=== PATIENT | male | born 1955 | race Caucasian/White ===

== ENCOUNTER 2017-05-04 12:14 | Inpatient (IN) | payer BC ==
[~2017-05-04] VITALS: Ht 167.6 cm; Wt 60.0 kg
[2017-05-04] VITALS (12 sets, daily range): BP systolic 95–106; BP diastolic 54–60; PULSE 68–78; RESP 15–18; Ht 167.6 cm; Wt 60.0 kg
[2017-05-04] MEDS ORDERED: IODIXANOL LOCM 100 ML BTL ONE (12:27)
[2017-05-04] MEDS ORDERED: LIDOCAINE 1% (MDV) 20 ML INJ ONE (12:27)
[2017-05-04] MEDS ORDERED: IOHEXOL 350MG/ML 50 ML BTL ONE (12:27)
[2017-05-04] MEDS ORDERED: NITROGLYCERIN (IC) 100 MCG/ML INJ ONE (12:27)
[2017-05-04] MEDS ORDERED: FENTAnyl 50 MCG/ML VIAL ONE (12:27)
[2017-05-04] MEDS ORDERED: MIDAZOLAM 1 MG/ML 2 ML INJ ONE (12:27)
[2017-05-04] MEDS ORDERED: HEPARIN 1000 UNITS/ML 10 ML INJ IV ONE (12:30)
[2017-05-04] MEDS ORDERED: SOD CHLORIDE 0.9% 1,000 ML IV ONE (12:30)
[2017-05-04] MEDS ORDERED: ASPIRIN 81 MG TAB PO ONE (12:30)
[2017-05-04 12:33] LABS: BASOPHIL # 0.1 10^3/ul (0.0-0.1); EOSINOPHILS # 0.2 10^3/ul (0.0-0.5); EOSINOPHILS % 3.6 % (0.0-7.0); HEMATOCRIT 30.3 % (42.0-52.0); HEMOGLOBIN 10.4 g/dl (14.0-18.0); LYMPHOCYTES # 1.7 10^3/ul (0.8-2.9); LYMPHOCYTES % 27.6 % (15.0-51.0); MEAN CORPUSCULAR HEMOGLOBIN 31.7 pg (29.0-33.0); MEAN CORPUSCULAR HGB CONC 34.3 g/dl (32.0-37.0); MEAN CORPUSCULAR VOLUME 92.4 fl (82.0-101.0); MEAN PLATELET VOLUME 10.2 fl (7.4-10.4); MONOCYTE # 0.6 10^3/ul (0.3-0.9); NEUTROPHIL # 3.5 10^3/ul (1.6-7.5); NEUTROPHILS % 57.5 % (39.0-77.0); PLATELET COUNT 175 10^3/UL (140-415); RED BLOOD COUNT 3.28 10^6/ul (4.70-6.10); RED CELL DISTRIBUTION WIDTH 12.6 % (11.5-14.5); WHITE BLOOD COUNT 6.1 10^3/ul (4.8-10.8)
[2017-05-04 12:45] LABS: ANION GAP 13 (8-16); BLOOD UREA NITROGEN 29 mg/dl (7-20); CALCIUM 9.1 mg/dl (8.4-10.2); CARBON DIOXIDE 22 mmol/L (21-31); CHLORIDE 103 mmol/L (97-110); CREATININE 1.05 mg/dl (0.61-1.24); GLUCOSE 101 mg/dl (70-220); POTASSIUM 3.9 mmol/L (3.5-5.1); SODIUM 134 mmol/L (135-144)
--- NOTE | 2017-05-04 12:49 | RADRPT ---
PROCEDURE: XR Chest. CLINICAL INDICATION: Chest pain TECHNIQUE: Single portable view of the chest was obtained COMPARISON: No priors for comparison FINDINGS: The trachea is midline. The cardiac silhouette and pulmonary vascularity are within normal limits. T he lungs are clear. The costophrenic angles are sharp. IMPRESSION: 1. No evidence of acute cardiopulmonary disease. RPTAT: AAPP Physician Chhaya Date Time Electronically viewed and signed by Physician Chhaya on 05/04/2017 12:49 CHAITANYA/
--- NOTE | 2017-05-04 12:51 | RADRPT ---
PROCEDURE: CT Brain without contrast. CLINICAL INDICATION: Neurologic deficit TECHNIQUE: A CT of the brain was performed on multidetector high-resolution CT scanner utilizing a xial sections from the skull base through the vertex without contrast. One or more of the following dose reduction techniques were used: Automated exposure control, Adjustment of the mA and/or kV acc ording to patient size, and/or use of iterative reconstruction technique. DOSE: CTDI = 44 mGy and the DLP = 720 mGy-cm. COMPARISON: None available FINDINGS: No acute intracranial hemorrhage, significant mass effect or midline shift. Mild hypoattenuation of the cerebral white matter is compatible with chronic microvascular ischemic changes. Chronic right l entiform nucleus lacunar infarct. Vascular calcifications. Prominence of the cortical sulci and vent ricles are related to mild cerebral volume loss. Opacified right mastoid, right middle ear cavity and bilateral external auditory canals IMPRESSION: No acute intracranial hemorrhage or mass effect. Mild chronic microvascular disease and intracranial atherosclerosis. Chronic right lentiform nucleus lacunar infarct. Opacified right mastoid, right middle ear cavity and bilateral external auditory canals RPTAT: AA .Jesse Erickson MD, MD Date Time Electronically viewed and signed by .Jesse Erickson MD, MD on 05/04/2017 12:51 .T/
[2017-05-04 13:04] LABS: TROPONIN-I < 0.012 ng/ml (0.00-0.12)
[2017-05-04] MEDS ORDERED: SOD CHLORIDE 0.9% 1,000 ML IV SCH (13:22)
--- NOTE | 2017-05-04 13:30 | CONS ---
Date/Time of Note Date/Time of Note DATE: 05/04/17 TIME: 13:23 Assessment/Plan Assessment/Plan Chief Complaint/Hosp Course Inferior ST elevation: Concerning EKG in a pt with unclear history, unobtainable symptoms, and syncope was concerning enough for urgent cardiac cath. Cath showed normal coronaries, normal EF, and aortogram did not show an obvious aortic dissection. Syncope: Unclear etiology but possible vasovagal or orthostatic as no coronary event and normal EF. Schizophrenia: unclear baseline cognition. Head CT normal -no cardiac meds at this time further evaluation per primary team +/- neurology Problems: Consultation Date/Type/Reason Admit Date/Time Date of Consultation: May 04, 2017 Type of Consultation: Cardiology Reason for Consultation STEMI Referring Provider: ALICIA BRITTON MD Hx of Present Illness 61 yo M with unclear history except for schizophrenia who was brought in from his "daycare" due to syncope. The pt apparently was having a cigarette and collapsed. He was noted to have inferior ST elevations for which STEMI was activated. He also had a head injury so a head CT was done prior to transfer to the laborer petroleum refinery and was negative. An medical interpreter was used in the ED and apparently he speaks Mandarin but was speaking incoherently. The pt is uncooperative so he was sedated for the cath. Cath showed no CAD, no aortic dissection, and normal LV function. unable to obtain Past Medical History unknown Social History Smoking Status: Unknown if ever smoked Exam/Review of Systems Vital Signs Vitals Vital Signs Date Time Temp Pulse Resp B/P Pulse Ox O2 Delivery O2 Flow Rate FiO2 05/04/17 12:26 96.5 65 22 98/73 99 05/04/17 12:26 Nasal Cannula 2 Exam Constitutional: alert, No distress, No oriented Head: atraumatic, normocephalic Neck: No jvd Respiratory: clear to auscultation, No crackles/rales Cardiovascular: No edema, No systolic murmur Gastrointestinal: non-tender, soft Neurological: No nl mental status, No nl speech Results EKG: sinus, 1mm upsloping ST elevation inferior leads, V4-V6 0.5mm REGGIE Result Diagram: 05/04/17 1230 05/04/17 1230 Results 24 hrs Laboratory Tests Test 05/04/17 12:25 05/04/17 12:30 Bedside Glucose 103 White Blood Count 6.1 Red Blood Count 3.28 L Hemoglobin 10.4 L Hematocrit 30.3 L Mean Corpuscular Volume 92.4 Mean Corpuscular Hemoglobin 31.7 Mean Corpuscular Hemoglobin Concent 34.3 Red Cell Distribution Width 12.6 Platelet Count 175 Mean Platelet Volume 10.2 Neutrophils % 57.5 Lymphocytes % 27.6 Monocytes % 10.0 Eosinophils % 3.6 Basophils % 1.0 Nucleated Red Blood Cells % 0.0 Neutrophils # 3.5 Lymphocytes # 1.7 Monocytes # 0.6 Eosinophils # 0.2 Basophils # 0.1 Nucleated Red Blood Cells # 0.0 Sodium Level 134 L Potassium Level 3.9 Chloride Level 103 Carbon Dioxide Level 22 Anion Gap 13 Blood Urea Nitrogen 29 H Creatinine 1.05 Glucose Level 101 Calcium Level 9.1 Troponin I < 0.012 Medications Medications Current Medications Sodium Chloride (NS) 1,000 ml @ 1,000 mls/hr Q1H ONCE IV Last administered on 05/04/17t 12:28; Admin Dose 1,000 MLS/HR; Start 05/04/17 at 12:30; Stop 05/04 at 13:29 RODNEY KRUSE May 04, 2017 13:30
--- NOTE | 2017-05-04 13:38 | OPR ---
Date/Time of Note Date/Time of Note DATE: 05/04/17 TIME: 13:30 Operative Report Procedure Date: May 04, 2017 Preoperative Diagnosis possible inferior STEMI Postoperative Diagnosis normal coronaries Surgeon see signature line Interior Design Instructor none Anesthesia Type: moderate sedation Estimated Blood Loss: minimal Transfusion none Specimen none Grafts/Implants none Complications none Procedure Description Procedure Date:05/04/17 Decorating Kiln Operator/surgeon:Juan Manuel Rockwell MD. Procedures Performed: 1)Left heart catheterization with selective left and right coronary angiography. 2)Left ventricle angiography 3)Aortogram 4)Right femoral angiography and Perclose closure device Pre-operative Diagnosis:Inferior STEMI Post-operative Diagnosis:normal coronaries Indications:61 yo M with unclear history except for schizophrenia who was brought in from his "daycare" due to syncope. The pt apparently was having a cigarette and collapsed. He was noted to have inferior ST elevations for which STEMI was activated. He also had a head injury so a head CT was done prior to transfer to the laborer orchard and was negative. An laborer airport maintenance was used in the ED and apparently he speaks Mandarin but was speaking incoherently. Description of Procedure: Patient could not be consented due to mental status. The procedure site was prepped and draped in usual manner. The patient was premedicated with versed 2 mg and fentanyl 25 mcg. 5 mL lidocaine was injected into the right groin. Next using the Seldinger technique, the 6 latvian sheath was inserted into the right femoral artery.The pigtail was then advanced and an aortogram was obtained since the pt had a somewhat unclear presentation and aortic dissection remained in the differential. Next using the JL4 and JR4 guide, selective angiography of the left and right coronary arteries were obtained. The pigtail was then advanced into the ventricle and hemodynamics obtained. Left ventricle angiography was obtained. Next all equipment was removed and hemostasis was obtained by Perclose closure device. Findings: Anatomy/Hemodynamics: Left main:normal LAD:normal Diagonal:normal Circumflex:normal Obtuse marginal:normal RCA:dominant vessel, normal PDA:normal PLV:normal Aortogram: No aortic regurgitation, no aortic aneurysm or e/o dissection LV angiography: EF >60%, no WMA LV:-Ao: no gradient LVEDP: 11mmHg Contrast used: 105mL Estimated blood loss<10 mL. Specimen: none Grafts/implants: none Complications: none Assessment: Concern for inferior STEMI with normal coronaries, normal EF, normal aortogram Syncope Schizophrenia Plan: -would still trend trops -f/u echo -no cardiac meds at this time JUAN MANUEL ROCKWELL May 04, 2017 13:38
[2017-05-04] MEDS ORDERED: HYDROCODONE/APAP (5/325) TAB PO PRN ×2 (14:00)
[2017-05-04] MEDS ORDERED: MAGNESIUM HYDROXIDE 30ML CUP PO PRN (14:00)
[2017-05-04] MEDS ORDERED: NITROGLYCERIN (SL) 0.4 MG TAB SL PRN (14:00)
[2017-05-04] MEDS ORDERED: ONDANSETRON 4 MG INJ IV PRN (14:00)
[2017-05-04] MEDS ORDERED: DOCUSATE SODIUM 100 MG CAP PO PRN (14:00)
[2017-05-04] MEDS ORDERED: BISACODYL 10 MG SUPP PR PRN (14:00)
[2017-05-04] MEDS ORDERED: morphine 2 MG INJ IV PRN (14:00)
[2017-05-04] MEDS ORDERED: NACL 0.9% 3 ML SYG IV SCH (14:00)
[2017-05-04] MEDS ORDERED: ACETAMINOPHEN 650 MG SUPP PR PRN (14:00)
[2017-05-04] MEDS ORDERED: ACETAMINOPHEN 325 MG TAB PO PRN (14:00)
--- NOTE | 2017-05-04 14:19 | ERD ---
ER Documentation Chief Complaint Chief Complaint s/p ground level fall. ekg indicating stemi HPI . The patient is a 61-year-old male, taken to the ER from the daycare center. He was outside smoking when he possibly had a syncopal episode and fell on the ground. When the EMS arrived to the scene, he was able to get up by himself. There is a language barrier, minimal history is obtained from the patient. We even have Mandarin/Cantonese principal mechanical engineer in the ER but we were not able to get any significant history from the patient. The EMS EKG showed acute inferior TX. Past medical history: Schizophrenia Past medical history/social history/review of system: Unable to obtain due to his condition ROS All systems reviewed and are negative except as per history of present illness. PMhx/Soc Medical and Surgical Hx: Unable to obtain Hx Alcohol Use: No Hx Substance Use: No Hx Tobacco Use: No Smoking Status: Unknown if ever smoked Physical Exam Vitals Vital Signs Date Time Temp Pulse Resp B/P Pulse Ox O2 Delivery O2 Flow Rate FiO2 05/04/17 14:05 70 16 100/54 96 Room Air 05/04/17 14:04 70 15 101/58 100 Room Air 05/04/17 13:59 72 16 105/57 97 Room Air 05/04/17 13:54 68 17 95/54 98 Room Air 05/04/17 13:50 98.0 70 18 104/60 98 Room Air 05/04/17 13:45 98.0 70 18 104/60 98 Room Air 05/04/17 12:26 96.5 65 22 98/73 99 05/04/17 12:26 Nasal Cannula 2 Physical Exam Const: No acute distress. Head: Atraumatic.Small occipital abrasion, no active bleeding Eyes: Normal Conjunctiva. ENT: Normal External Ears, Nose and Mouth. Neck: Full range of motion. No meningismus. Resp: Clear to auscultation bilaterally. Cardio: Regular rate and rhythm. Abd: Soft, non distended, normal bowel sounds, non tender. Skin: No petechiae or rashes. Back: No midline or flank tenderness. Ext: No cyanosis, or edema. Neur: Awake and alert. No focal deficit Psych: Normal Mood and Affect. Result Diagram: 05/04/17 1230 05/04/17 1230 Results 24 hrs Laboratory Tests Test 05/04/17 12:25 05/04/17 12:30 Bedside Glucose 103mg/dL White Blood Count 6.110^3/ul Red Blood Count 3.2810^6/ul Hemoglobin 10.4g/dl Hematocrit 30.3% Mean Corpuscular Volume 92.4fl Mean Corpuscular Hemoglobin 31.7pg Mean Corpuscular Hemoglobin Concent 34.3g/dl Red Cell Distribution Width 12.6% Platelet Count 82901^3/UL Mean Platelet Volume 10.2fl Neutrophils % 57.5% Lymphocytes % 27.6% Monocytes % 10.0% Eosinophils % 3.6% Basophils % 1.0% Nucleated Red Blood Cells % 0.0/100WBC Neutrophils # 3.510^3/ul Lymphocytes # 1.710^3/ul Monocytes # 0.610^3/ul Eosinophils # 0.210^3/ul Basophils # 0.110^3/ul Nucleated Red Blood Cells # 0.010^3/ul Sodium Level 134mmol/L Potassium Level 3.9mmol/L Chloride Level 103mmol/L Carbon Dioxide Level 22mmol/L Anion Gap 13 Blood Urea Nitrogen 29mg/dl Creatinine 1.05mg/dl Glucose Level 101mg/dl Calcium Level 9.1mg/dl Troponin I < 0.012ng/ml Current Medications Medications (Trade) Dose Ordered Sig/Juanita Route PRN Reason Start Time Stop Time Status Last Admin Dose Admin Aspirin 162 mg 162 mg ONCE ONCE PO 05/04/17 12:30 05/04/17 12:31 DC 05/04/17 12:29 Sodium Chloride (NS) 1,000 ml @ 1,000 mls/hr Q1H ONCE IV 05/04/17 12:30 05/04/17 13:29 DC 05/04/17 12:28 Heparin Sodium (Porcine) (Heparin (1000 Units/ml)) 4,000 unit ONCE ONCE IV 05/04/17 12:30 05/04/17 12:31 DC Miscellaneous Information HOLD all METFORMIN ... ONCE ONCE XX 05/04/17 13:30 05/04/17 13:31 UNV Sodium Chloride (NS) 1,000 ml @ 75 mls/hr [id number] IV 05/04/17 13:22 05/04/17 18:21 UNV IV Flush (NS 3 ml) 3 ml PER PROTOCOL IV 05/04/17 14:00 UNV Ondansetron HCl (Zofran Inj) 4 mg Q6H PRN IV NAUSEA AND/OR VOMITING 05/04/17 14:00 UNV Acetaminophen (Tylenol Tab) 650 mg Q6H PRN PO PAIN LEVEL 1-3 OR FEVER 05/04/17 14:00 UNV Acetaminophen (Tylenol Supp) 650 mg Q6H PRN [place] PAIN LEVEL 1-3 OR FEVER 05/04/17 14:00 UNV Acetaminophen/ Hydrocodone Bitart ([place] (5/325)) 1 tab Q6H PRN PO MODERATE PAIN LEVEL 4-6 05/04/17 14:00 UNV Acetaminophen/ Hydrocodone Bitart ([place] (5/325)) 2 tab Q6H PRN PO SEVERE PAIN LEVEL 7-10 05/04/17 14:00 UNV Morphine Sulfate (morphine) 2 mg Q4H PRN IV SEVERE PAIN LEVEL 7-10 05/04/17 14:00 UNV Docusate Sodium (Colace) 100 mg Q12H PRN PO CONSTIPATION 05/04/17 14:00 UNV Magnesium Hydroxide (Milk Of Mag) 30 ml DAILY PRN PO CONSTIPATION 05/04/17 14:00 UNV Bisacodyl (Dulcolax Supp) 10 mg DAILY PRN [place] CONSTIPATION 05/04/17 14:00 UNV Pantoprazole (Protonix Iv) 40 mg DAILY@06 IV 05/05/17 06:00 UNV Heparin Sodium (Porcine) (Heparin (5000 Units/0.5 ml)) 5,000 unit Q12 SC 05/04/17 21:00 UNV Aspirin (Aspirin) 81 mg DAILY PO 05/06/17 09:00 UNV Carvedilol (Coreg) 6.25 mg BID PO 05/04/17 21:00 UNV Nitroglycerin (Nitroglycerin (Sl Tab) 0.4 Mg) 1 tab Q5M PRN SL CHEST PAIN 05/04/17 14:00 UNV [facility]/[place] [id number] Radiology Main Line: [phone] DIAGNOSTIC IMAGING REPORT Patient: AISHA HUIZAR : 1955 Age: 61 Sex: M MR #: [id number] DOS: 05/04/17 1223 Ordering MD: ALICIA BRITTON MD Location: E/R Room/Bed: PROCEDURE: XR Chest. CLINICAL INDICATION: Chest pain TECHNIQUE: Single portable view of the chest was obtained COMPARISON: No priors for comparison FINDINGS: The trachea is midline. The cardiac silhouette and pulmonary vascularity are within normal limits. The lungs are clear. The costophrenic angles are sharp. IMPRESSION: 1. No evidence of acute cardiopulmonary disease. RPTAT: AAPP Physician Chhaya Date Time Electronically viewed and signed by Physician Chhaya on 05/04/2017 12:49 JL/ CC: ALICIA BRITTON MD [place] [id number] Radiology Main Line: [phone] DIAGNOSTIC IMAGING REPORT Patient: AISHA HUIZAR : 1955 Age: 61 Sex: M MR #: [id number] DOS: 05/04/17 1228 Ordering MD: ALICIA BRITTON MD Location: E/R Room/Bed: PROCEDURE: CT Brain without contrast. CLINICAL INDICATION: Neurologic deficit TECHNIQUE: A CT of the brain was performed on multidetector high-resolution CT scanner utilizing axial sections from the skull base through the vertex without contrast. One or more of the following dose reduction techniques were used: Automated exposure control, Adjustment of the mA and/or kV according to patient size, and/or use of iterative reconstruction technique. DOSE: CTDI = 44 mGy and the DLP = 720 mGy-cm. COMPARISON: None available FINDINGS: No acute intracranial hemorrhage, significant mass effect or midline shift. Mild hypoattenuation of the cerebral white matter is compatible with chronic microvascular ischemic changes. Chronic right lentiform nucleus lacunar infarct. Vascular calcifications. Prominence of the cortical sulci and ventricles are related to mild cerebral volume loss. Opacified right mastoid, right middle ear cavity and bilateral external auditory canals IMPRESSION: No acute intracranial hemorrhage or mass effect. Mild chronic microvascular disease and intracranial atherosclerosis. Chronic right lentiform nucleus lacunar infarct. Opacified right mastoid, right middle ear cavity and bilateral external auditory canals RPTAT: AA .Jesse Erickson MD, Date Time Electronically viewed and signed by .Jesse Erickson MD, on 05/04/2017 12:51 .T/ CC: ALICIA BRITTON MD EKG: At 1212 hrs. Read by emergency physician Rate/Rhythm: Normal Sinus Rhythm 69 beats/min QRS, ST, T-waves: ,ST elevation inferiorly with reciprocal changes Impression: Acute inferior TX MEDICAL MAKING DECISION: The patient is a 61-year-old male, presenting with acute inferior TX, acute syncope. Head CT was negative. He was therefore treated with additional aspirin 162 mg p.o., heparin 4000 units IV and 1 L normal saline. Consultation: I discussed the patient with the on-call accounts officer Dr. Rockwell at 1213 hrs.. He was made aware of the pending CT scan of the brain. Heparin was given after the CT scan of the brain was read negative by radiologist. The differential diagnoses considered include but are not limited to bradyarrhythmia, tachyarrhythmias, aortic outflow obstruction, neurogenic including subarachnoid hemorrhage, orthostatic hypotension and all of its causes , hypoglycemia, dysautonomia, medications, aortic dissection, PE Critical Care: Time: 35 minutes excluding all billable procedures. Treatments/Evaluations: Close monitoring and treatment of unstable vital signs, cardiorespiratory, and neurologic status, while maintaining tight balance of fluid, respiratory, and cardiac interventions. Departure Diagnosis: Primary Impression: ST elevation myocardial infarction (STEMI) Additional Impressions: Syncope Anemia Condition: Critical Comments I discussed the findings with the patient. I discussed the patient with the on- call hospitalist Dr. Bedolla at 1 PM who was made aware of the lab, the treatment, the patient condition. The patient is admitted to ICU after cardiac cath ALICIA BRITTON MD May 04, 2017 14:19
--- NOTE | 2017-05-04 16:06 | HP ---
Date/Time of Note Date/Time of Note DATE: 05/04/17 TIME: 15:56 Assessment/Plan VTE Prophylaxis VTE Prophylaxis Intervention: SCD's Lines/Catheters IV Catheter Type (from Nrs): Peripheral IV Assessment/Plan Chief Complaint/Hosp Course Impression and plan 1. Suspect inferior ST elevated myocardial infarction. EKG was suspect for a myocardial infarction. Initial troponin negative. Will trend troponins. Follow-up on echo. Monitor on telemetry. Cardiovascular regimen per milled rice broker. 2. Suspect syncope. CT scan of the brain was negative for any acute infarction. Follow-up an MRI of the brain as well as carotid Doppler. 3. History of schizophrenia. Baseline unknown. Follow-up with family for medication history. Will start once regimen established. Admission process time is greater than 40 minutes Discussed plan of care with Rahi Problems: HPI/ROS Admit Date/Time Admit Date/Time Hx of Present Illness This is a 61-year-old male with history of schizophrenia and questionable history of cancer (per patient) who came to [facility] after being found at his daycare center with possible syncopal episode. Patient reportedly fell on the ground. He was unable to get himself up. He is a poor historian of his medical history and we did try to get gold cutter however patient was mumbling his words and gold cutter could not understand. History was taken from collaborative medical staff. Patient was brought to [facility] and per report was found to have an EKG showing ST elevation in inferior leads with reciprocal changes. He was seen by milled rice broker and brought to grinding and polishing laborer. Patient did undergo left heart catheterization with selective left and right coronary angiography. Per findings there was seen normal LAD/diagonal/circumflex/obtuse marginal/RCA. Patient was noted with normal coronaries. Troponins so far have been negative and chemistry only showing some mild hyponatremia. No fevers reported. Patient remains alert however suspect with some underlying dementia/psychiatric disorder. No reports of chest pain. CT scan of the brain showing no acute intracranial hemorrhage or mass-effect and only seen a chronic right lentiform nucleus lacunar infarct. We will evaluate him for the aformentiond issues. ROS Unable to fully obtain due to patient's mentation PMH/Family/Social Past Medical History Medical/surgical history 1. Schizophrenia 2. Questionable cancer (etiology and source unknown) (Full history unable to be obtained at this time due to patient's mentation and patient is a poor historian. Call made out to family member for further investigation of history) Social History Smoking Status: Unknown if ever smoked Exam/Review of Systems Vital Signs Vitals Vital Signs Date Time Temp Pulse Resp B/P Pulse Ox O2 Delivery O2 Flow Rate FiO2 05/04/17 14:19 72 16 106/59 100 Room Air 05/04/17 13:50 98.0 05/04/17 12:26 2 Exam Constitutional: alert, other (Confused) Eyes: nl conjunctiva ENMT: nl external ears & nose, nl lips & teeth Neck: supple, No jvd Respiratory: normal air movement Cardiovascular: other (Regular rate) Gastrointestinal: non-tender, soft Musculoskeletal: other (Noted with previous right first toe amputation) Labs Result Diagram: 05/04/17 1230 05/04/17 1230 Medications Medications Current Medications Miscellaneous Information HOLD all METFORMIN ... ONCE ONCE XX ; Start at 13:30; Stop 05/04/17 at 13:31; Status UNV Sodium Chloride (NS) 1,000 ml @ 75 mls/hr [id number] IV ; Start 05/04/17 at 13:22 ; Stop 05/04/17 at 18:21; Status UNV Ondansetron HCl (Zofran Inj) 4 mg Q6H PRN IV NAUSEA AND/OR VOMITING; Start at 14:00; Status UNV Acetaminophen (Tylenol Tab) 650 mg Q6H PRN PO PAIN LEVEL 1-3 OR FEVER; Start 05/04/17 at 14:00; Status UNV Acetaminophen (Tylenol Supp) 650 mg Q6H PRN [place] PAIN LEVEL 1-3 OR FEVER; Start 05/04/17 at 14:00; Status UNV Acetaminophen/ Hydrocodone Bitart ([place] (5/325)) 1 tab Q6H PRN PO MODERATE PAIN LEVEL 4-6; Start 05/04/17 at 14:00; Status UNV Acetaminophen/ Hydrocodone Bitart ([place] (5/325)) 2 tab Q6H PRN PO SEVERE PAIN LEVEL 7-10; Start 05/04/17 at 14:00; Status UNV Morphine Sulfate (morphine) 2 mg Q4H PRN IV SEVERE PAIN LEVEL 7-10; Start at 14:00; Status UNV Docusate Sodium (Colace) 100 mg Q12H PRN PO CONSTIPATION; Start 05/04/17 at 14 :00; Status UNV Magnesium Hydroxide (Milk Of Mag) 30 ml DAILY PRN PO CONSTIPATION; Start 05/04 at 14:00; Status UNV Bisacodyl (Dulcolax Supp) 10 mg DAILY PRN [place] CONSTIPATION; Start 05/04/17 at 14:00; Status UNV Pantoprazole (Protonix Iv) 40 mg DAILY@06 IV ; Start 05/05/17 at 06:00; Status UNV Heparin Sodium (Porcine) (Heparin (5000 Units/0.5 ml)) 5,000 unit Q12 SC ; Start 05/04/17 at 21:00; Status UNV Aspirin (Aspirin) 81 mg DAILY PO ; Start 05/06/17 at 09:00; Status UNV Carvedilol (Coreg) 6.25 mg BID PO ; Start 05/04/17 at 21:00; Status UNV Nitroglycerin (Nitroglycerin (Sl Tab) 0.4 Mg) 1 tab Q5M PRN SL CHEST PAIN; Start 05/04/17 at 14:00; Status UNV SUNSHINE BOWLES May 04, 2017 16:06
[2017-05-04 17:12] LABS: CREATINE KINASE 321 IU/L (23-200)
[2017-05-04 17:47] LABS: CK-MB 1.83 ng/ml (0.0-2.4); TROPONIN-I < 0.012 ng/ml (0.00-0.12)
[2017-05-04] MEDS ORDERED: GLUCAGON 1 MG INJ IM PRN (18:30)
[2017-05-04] MEDS ORDERED: GLUCOSE GEL 15 GRAM TUBE BUCCAL PRN (18:30)
[2017-05-04] MEDS ORDERED: DEXTROSE 50% 50 ML SYRINGE IV PRN ×2 (18:30)
[2017-05-04] MEDS ORDERED: GLUCOSE GEL 15 GRAM TUBE PO PRN ×2 (18:30)
[2017-05-04] MEDS: INSULIN ASPART [NOVOLOG] 3 ML PEN SC SCH (21:00)
[2017-05-04] MEDS: HEPARIN 5,000 UNIT/0.5 ML VIAL SC SCH (21:00)
[2017-05-04 23:22] LABS: CREATINE KINASE 279 IU/L (23-200)
[2017-05-04 23:34] LABS: CK-MB 1.63 ng/ml (0.0-2.4); TROPONIN-I < 0.012 ng/ml (0.00-0.12)
[2017-05-05] VITALS (9 sets, daily range): BP systolic 101–131; BP diastolic 61–69; PULSE 61–71; RESP 18–19
[2017-05-05] MEDS ORDERED: ACCU-CHEK XX SCH (02:00)
[2017-05-05] MEDS: ACCU-CHEK XX SCH (02:00)
[2017-05-05] MEDS ORDERED: PANTOPRAZOLE 40 MG INJ IV SCH (06:00)
[2017-05-05 07:39] LABS: BASOPHILS % 0.4 % (0.0-2.0); EOSINOPHILS # 0.1 10^3/ul (0.0-0.5); EOSINOPHILS % 0.8 % (0.0-7.0); HEMATOCRIT 30.7 % (42.0-52.0); HEMOGLOBIN 10.2 g/dl (14.0-18.0); LYMPHOCYTES # 0.8 10^3/ul (0.8-2.9); LYMPHOCYTES % 7.2 % (15.0-51.0); MEAN CORPUSCULAR HEMOGLOBIN 30.8 pg (29.0-33.0); MEAN CORPUSCULAR HGB CONC 33.2 g/dl (32.0-37.0); MEAN CORPUSCULAR VOLUME 92.7 fl (82.0-101.0); MEAN PLATELET VOLUME 10.5 fl (7.4-10.4); MONOCYTE # 0.7 10^3/ul (0.3-0.9); MONOCYTES % 6.1 % (0.0-11.0); NEUTROPHILS % 85.1 % (39.0-77.0); PLATELET COUNT 164 10^3/UL (140-415); RED BLOOD COUNT 3.31 10^6/ul (4.70-6.10); RED CELL DISTRIBUTION WIDTH 12.7 % (11.5-14.5); WHITE BLOOD COUNT 10.6 10^3/ul (4.8-10.8)
[2017-05-05] MEDS: INSULIN ASPART [NOVOLOG] 3 ML PEN SC SCH ×4 (08:00→21:00)
[2017-05-05 08:03] LABS: CREATINE KINASE 252 IU/L (23-200)
[2017-05-05 08:05] LABS: ALBUMIN 3.5 g/dl (3.3-4.9); ALBUMIN/GLOBULIN RATIO 1.34; BILIRUBIN,INDIRECT 0.4 mg/dl (0-1.1); BILIRUBIN,TOTAL 0.4 mg/dl (0.2-1.3); CALCIUM 8.8 mg/dl (8.4-10.2); CHOL/HDL RATIO 2.5 RATIO; CREATININE 1.03 mg/dl (0.61-1.24); MAGNESIUM 1.8 mg/dl (1.7-2.5); PHOSPHORUS 3.1 mg/dl (2.5-4.9); POTASSIUM 3.4 mmol/L (3.5-5.1); TOTAL PROTEIN 6.1 g/dl (6.1-8.1)
[2017-05-05 08:16] LABS: CK-MB 1.11 ng/ml (0.0-2.4); TROPONIN-I < 0.012 ng/ml (0.00-0.12)
[2017-05-05 08:35] LABS: THYROID STIMULATING HORMONE 0.422 MIU/L (0.465-4.680)
[2017-05-05] MEDS: HEPARIN 5,000 UNIT/0.5 ML VIAL SC SCH ×2 (08:53→21:15)
[2017-05-05 11:28] LABS: CREATINE KINASE 225 IU/L (23-200)
[2017-05-05 11:42] LABS: CK-MB 0.96 ng/ml (0.0-2.4); TROPONIN-I < 0.012 ng/ml (0.00-0.12)
--- NOTE | 2017-05-05 14:19 | PN ---
Date/Time of Note Date/Time of Note DATE: 05/05/17 TIME: 14:14 Assessment/Plan VTE Prophylaxis VTE Prophylaxis Intervention: SCD's Lines/Catheters IV Catheter Type (from Nrs): Peripheral IV Assessment/Plan Chief Complaint/Hosp Course Impression and plan 1. Suspect inferior ST elevated myocardial infarction. EKG was suspect for a myocardial infarction. troponin negative. Follow-up on echo. Monitor on telemetry. Cardiovascular regimen per document image technician. 2. Suspect syncope. CT scan of the brain was negative for any acute infarction. Carotid Doppler is pending. Will hold off MRI of the brain for now. Check orthostatic blood pressures 3. History of schizophrenia. Discussed with family, patient does have extensive history of schizophrenia. Will monitor for now. Disposition and plan: Follow-up echocardiogram. Follow-up with document image technician recommendations. Discharge when medically stable for by consultants. Follow- up on carotid Doppler Discussed plan of care with Rain Problems: Subjective 24 Hr Interval Summary Free Text/Dictation No signs of distress. Sitter at bedside. Exam/Review of Systems Vital Signs Vitals Vital Signs Date Time Temp Pulse Resp B/P Pulse Ox O2 Delivery O2 Flow Rate FiO2 05/05/17 12:00 71 05/05/17 07:38 98.0 19 131/69 98 05/04/17 14:19 Room Air 05/04/17 12:26 2 Intake and Output 05/04/17 05/04/17 05/05/17 15:00 23:00 07:00 Intake Total 500 ml Output Total 1300 ml Balance -800 ml Exam Constitutional: alert, other (No apparent distress. 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) Neurological: ELEMENT[employer] S[employer] TE[employer]ER'S AIDE II-XII intact, nl mental status, nl speech Results Result Diagram: 05/05/17 0631 05/05/17 0631 Results 24 hrs Laboratory Tests Test 05/04/17 16:51 05/04/17 17:21 05/04/17 21:26 05/04/17 22:46 Creatine Kinase 321 H 279 H Creatine Kinase Index 0.6 0.6 Creatinine Kinase MB (Mass) 1.83 1.63 Troponin I < 0.012 < 0.012 Bedside Glucose 192 157 Test 05/05/17 06:31 05/05/17 06:35 05/05/17 08:22 05/05/17 10:34 White Blood Count 10.6 # Red Blood Count 3.31 L Hemoglobin 10.2 L Hematocrit 30.7 L Mean Corpuscular Volume 92.7 Mean Corpuscular Hemoglobin 30.8 Mean Corpuscular Hemoglobin Concent 33.2 Red Cell Distribution Width 12.7 Platelet Count 164 Mean Platelet Volume 10.5 H Neutrophils % 85.1 H Lymphocytes % 7.2 L Monocytes % 6.1 Eosinophils % 0.8 Basophils % 0.4 Nucleated Red Blood Cells % 0.0 Neutrophils # 9.0 H Lymphocytes # 0.8 Monocytes # 0.7 Eosinophils # 0.1 Basophils # 0.0 Nucleated Red Blood Cells # 0.0 Sodium Level 138 Potassium Level 3.4 L Chloride Level 107 Carbon Dioxide Level 21 Anion Gap 13 Blood Urea Nitrogen 17 # Creatinine 1.03 Glucose Level 124 Hemoglobin A1c 6.4 H Calcium Level 8.8 Phosphorus Level 3.1 Magnesium Level 1.8 Total Bilirubin 0.4 Direct Bilirubin 0.00 Indirect Bilirubin 0.4 Aspartate Amino Transf (AST/SGOT) 19 Alanine Aminotransferase (ALT/SGPT) 29 Alkaline Phosphatase 74 Total Protein 6.1 Albumin 3.5 Globulin 2.60 Albumin/Globulin Ratio 1.34 Triglycerides Level 70 Cholesterol Level 90 L LDL Cholesterol, Calculated 40 HDL Cholesterol 36 Cholesterol/HDL Ratio 2.5 Thyroid Stimulating Hormone (TSH) 0.422 L Free Thyroxine Index 2.58 Thyroxine (T4) 6.3 Triiodothyronine (T3) Uptake 41.0 H Creatine Kinase 252 H 225 H Creatine Kinase Index 0.4 0.4 Creatinine Kinase MB (Mass) 1.11 0.96 Troponin I < 0.012 < 0.012 Bedside Glucose 115 Test 05/05/17 12:26 Bedside Glucose 187 Medications Medications Current Medications Miscellaneous Information (* Miscellaneous Pharmacy Order) HOLD all METFORMIN ... ONCE XX ; Start 05/04/17 at 13:30; Stop 05/06/17 at 13:29 Ondansetron HCl (Zofran Inj) 4 mg Q6H PRN IV NAUSEA AND/OR VOMITING; Start at 14:00 Acetaminophen (Tylenol Tab) 650 mg Q6H PRN PO PAIN LEVEL 1-3 OR FEVER; Start 05/04/17 at 14:00 Acetaminophen (Tylenol Supp) 650 mg Q6H PRN [place] PAIN LEVEL 1-3 OR FEVER; Start 05/04/17 at 14:00 Acetaminophen/ Hydrocodone Bitart ([place] (5/325)) 1 tab Q6H PRN PO MODERATE PAIN LEVEL 4-6; Start 05/04/17 at 14:00 Acetaminophen/ Hydrocodone Bitart ([place] (5/325)) 2 tab Q6H PRN PO SEVERE PAIN LEVEL 7-10; Start 05/04/17 at 14:00 Morphine Sulfate (morphine) 2 mg Q4H PRN IV SEVERE PAIN LEVEL 7-10; Start at 14:00 Docusate Sodium (Colace) 100 mg Q12H PRN PO CONSTIPATION; Start 05/04/17 at 14 :00 Magnesium Hydroxide (Milk Of Mag) 30 ml DAILY PRN PO CONSTIPATION; Start 05/04 at 14:00 Bisacodyl (Dulcolax Supp) 10 mg DAILY PRN [place] CONSTIPATION; Start 05/04/17 at 14:00 Heparin Sodium (Porcine) (Heparin (5000 Units/0.5 ml)) 5,000 unit Q12 SC Last administered on 05/05/17 08:53; Admin Dose 5,000 UNIT; Start 05/04/17 at 21: 00 Aspirin (Aspirin) 81 mg DAILY PO ; Start 05/06/17 at 09:00 Carvedilol (Coreg) 6.25 mg BID PO Last administered on 05/05/17 08:51; Admin Dose 6.25 MG; Start 05/04/17 at 21:00 Nitroglycerin (Nitroglycerin (Sl Tab) 0.4 Mg) 1 tab Q5M PRN SL CHEST PAIN; Start 05/04/17 at 14:00 Diagnostic Test (Pha) (Accu-Chek) 1 ea 02 XX ; Start 05/05/17 at 02:00 Miscellaneous Information 1 ea NOTE XX ; Start 05/04/17 at 18:30 Glucose (Glutose) 15 gm Q15M PRN PO DECREASED GLUCOSE; Start 05/04/17 at 18:30 Glucose (Glutose) 22.5 gm Q15M PRN PO DECREASED GLUCOSE; Start 05/04/17 at 18: 30 Dextrose (D50w Syringe) 25 ml Q15M PRN IV DECREASED GLUCOSE; Start 05/04/17 at 18:30 Dextrose (D50w Syringe) 50 ml Q15M PRN IV DECREASED GLUCOSE; Start 05/04/17 at 18:30 Glucagon (Glucagen) 1 mg Q15M PRN IM DECREASED GLUCOSE; Start 05/04/17 at 18: 30 Glucose (Glutose) 15 gm Q15M PRN BUCCAL DECREASED GLUCOSE; Start 05/04/17 at 18:30 Pantoprazole (Protonix Tab) 40 mg DAILY@06 PO ; Start 05/06/17 at 06:00 SUNSHINE BOWLES May 05, 2017 14:18
--- NOTE | 2017-05-05 14:25 | RADRPT ---
Echocardiogram Report Patient Name: AISHA HUIZAR Gender: Male Date: 1955 Study Date: 04-May-2017 Show Design Supervisor: [facility] Location: 5538-[address] Ref. Physician: SUNSHINE BOWLES Quality: Adequate Procedures: Transthoracic echocardiogram with complete 2D, M-Mode, and doppler examination. Indications: VA. 2D/M Mode Doppler Measurement Value Normal Ranges Measurement Value Normal Ranges LVIDd 2D 4.1 3.5 - 5.6 cm AV Peak Ramiro 1.3 m/sec LVIDs 2D 2.7 2.1 - 4.1 cm AV Peak PG 7.0 mmHg FS 2D 33.7 % LVOT Peak Ramiro 1.2 m/sec LVPWd 2D 1.0 0.6 - 1.1 cm LVOT Peak PG 5.0 mmHg IVSd 2D 1.5 0.6 - 1.1 cm MV E Peak Ramiro 0.9 m/sec IVS/LVPW 2D 1.5 MV A Peak Ramiro 1.0 m/sec AoR Diam 2D 2.6 2.0 - 3.7 cm MV E/A 0.8 LA/Ao 2D 1 0 - 1 MV Decel Time 173 msec EDV 2D 66.9 cm3 MV E/A 0.8 ESV 2D 19.5 cm3 TR Peak Ramiro 2.6 m/sec LA Dimen 2D 3.5 2.3 - 4.0 cm TR Peak PG 27.0 mmHg RVSP 30.0 mmHg Findings Left Ventricle: Normal left ventricular systolic function. Normal left ventricular cavity size. Sigmoid septum. Ejection fraction is visually estimated at 6065 %. Tissue Doppler/Mitral Doppler indices are consistent with impaired relaxation (Stage I diastolic dysfunction). Right Ventricle: Normal right ventricular size. Normal right ventricular systolic function. Left Atrium: The left atrium is normal in size. Right Atrium: The right atrium is normal in size. Mitral Valve: Mild mitral leaflet calcification. Mild mitral annular calcification. Trace mitral regurgitation. Aortic Valve: No significant aortic stenosis. Aortic cusps appear mildly calcified. Trace aortic valve regurgitation. Tricuspid Valve: Normal appearance of the tricuspid valve. Estimated peak PA systolic pressure 30 mmHg. There is mild tricuspid regurgitation. Pulmonic Valve: Pulmonic valve not well visualized. There is mild pulmonic regurgitation. Pericardium: Normal pericardium with no significant pericardial effusion. Aorta: Normal aortic root. IVC: Normal size and normal respiratory collapse consistent with normal right atrial pressure. Conclusions 1.The left ventricle is normal in size and systolic function. 2.Estimated left ventricular ejection fraction of 60-65%. 3.Grade 1 diastolic dysfunction. Electronically Signed By: Maury Mello 05-May-2017 14:25:27 -0700 Patient Name: AISHA HUIZAR Study Date: 04-May-2017 [id number]
--- NOTE | 2017-05-05 14:45 | CONS ---
Date/Time of Note Date/Time of Note DATE: 05/05/17 TIME: 14:41 Assessment/Plan Assessment/Plan Chief Complaint/Hosp Course Assessment: Abnormal EKG - initial concern for inferior STEMI, but coronary angiography found normal coronary arteries and troponins have been negative x 3 Schizophrenia Recommendations: -echocardiogram showed normal LVEF 60-65%, grade 1 diastolic dysfunction -no additional cardiac work up at this time -no indication for cardiac medications at this time Problems: Consultation Date/Type/Reason Admit Date/Time May 04, 2017 at 13:37 Initial Consult Date 05/04/17 Type of Consultation: Cardiology 24 HR Interval Summary Free Text/Dictation No acute events. No chest pain or shortness of breath. Right femoral artery access site intact. Detailed Summary Additional Comments 14 point review of systems without changes. Exam/Review of Systems Vital Signs Vitals Vital Signs Date Time Temp Pulse Resp B/P Pulse Ox O2 Delivery O2 Flow Rate FiO2 05/05/17 14:00 98.2 72 18 128/69 97 05/04/17 14:19 Room Air 05/04/17 12:26 2 Intake and Output 05/04/17 05/04/17 05/05/17 14:59 22:59 06:59 Intake Total 500 ml Output Total 1300 ml Balance -800 ml Exam Constitutional: alert, No distress Psych: No nl mood/affect Head: atraumatic, normocephalic Eyes: nl conjunctiva, nl lids ENMT: nl external ears & nose, nl nasal mucosa & septum Neck: non-tender, supple, No jvd Respiratory: clear to auscultation, normal air movement Cardiovascular: regular rate and rhythm, No murmurs/extra sounds Gastrointestinal: non-tender, soft Musculoskeletal: nl extremities to inspection Extremities: No clubbing, No cyanosis, No edema Neurological: No nl mental status Results Result Diagram: 05/05/17 0631 05/05/17 0631 Results 24 hrs Laboratory Tests Test 05/04/17 16:51 05/04/17 17:21 05/04/17 21:26 05/04/17 22:46 Creatine Kinase 321 H 279 H Creatine Kinase Index 0.6 0.6 Creatinine Kinase MB (Mass) 1.83 1.63 Troponin I < 0.012 < 0.012 Bedside Glucose 192 157 Test 05/05/17 06:31 05/05/17 06:35 05/05/17 08:22 05/05/17 10:34 White Blood Count 10.6 # Red Blood Count 3.31 L Hemoglobin 10.2 L Hematocrit 30.7 L Mean Corpuscular Volume 92.7 Mean Corpuscular Hemoglobin 30.8 Mean Corpuscular Hemoglobin Concent 33.2 Red Cell Distribution Width 12.7 Platelet Count 164 Mean Platelet Volume 10.5 H Neutrophils % 85.1 H Lymphocytes % 7.2 L Monocytes % 6.1 Eosinophils % 0.8 Basophils % 0.4 Nucleated Red Blood Cells % 0.0 Neutrophils # 9.0 H Lymphocytes # 0.8 Monocytes # 0.7 Eosinophils # 0.1 Basophils # 0.0 Nucleated Red Blood Cells # 0.0 Sodium Level 138 Potassium Level 3.4 L Chloride Level 107 Carbon Dioxide Level 21 Anion Gap 13 Blood Urea Nitrogen 17 # Creatinine 1.03 Glucose Level 124 Hemoglobin A1c 6.4 H Calcium Level 8.8 Phosphorus Level 3.1 Magnesium Level 1.8 Total Bilirubin 0.4 Direct Bilirubin 0.00 Indirect Bilirubin 0.4 Aspartate Amino Transf (AST/SGOT) 19 Alanine Aminotransferase (ALT/SGPT) 29 Alkaline Phosphatase 74 Total Protein 6.1 Albumin 3.5 Globulin 2.60 Albumin/Globulin Ratio 1.34 Triglycerides Level 70 Cholesterol Level 90 L LDL Cholesterol, Calculated 40 HDL Cholesterol 36 Cholesterol/HDL Ratio 2.5 Thyroid Stimulating Hormone (TSH) 0.422 L Free Thyroxine Index 2.58 Thyroxine (T4) 6.3 Triiodothyronine (T3) Uptake 41.0 H Creatine Kinase 252 H 225 H Creatine Kinase Index 0.4 0.4 Creatinine Kinase MB (Mass) 1.11 0.96 Troponin I < 0.012 < 0.012 Bedside Glucose 115 Test 05/05/17 12:26 Bedside Glucose 187 Medications Medications Current Medications Miscellaneous Information (* Miscellaneous Pharmacy Order) HOLD all METFORMIN ... ONCE XX ; Start 05/04/17 at 13:30; Stop 05/06/17 at 13:29 Ondansetron HCl (Zofran Inj) 4 mg Q6H PRN IV NAUSEA AND/OR VOMITING; Start at 14:00 Acetaminophen (Tylenol Tab) 650 mg Q6H PRN PO PAIN LEVEL 1-3 OR FEVER; Start 05/04/17 at 14:00 Acetaminophen (Tylenol Supp) 650 mg Q6H PRN [place] PAIN LEVEL 1-3 OR FEVER; Start 05/04/17 at 14:00 Acetaminophen/ Hydrocodone Bitart ([place] (5/325)) 1 tab Q6H PRN PO MODERATE PAIN LEVEL 4-6; Start 05/04/17 at 14:00 Acetaminophen/ Hydrocodone Bitart ([place] (5/325)) 2 tab Q6H PRN PO SEVERE PAIN LEVEL 7-10; Start 05/04/17 at 14:00 Morphine Sulfate (morphine) 2 mg Q4H PRN IV SEVERE PAIN LEVEL 7-10; Start at 14:00 Docusate Sodium (Colace) 100 mg Q12H PRN PO CONSTIPATION; Start 05/04/17 at 14 :00 Magnesium Hydroxide (Milk Of Mag) 30 ml DAILY PRN PO CONSTIPATION; Start 05/04 at 14:00 Bisacodyl (Dulcolax Supp) 10 mg DAILY PRN [place] CONSTIPATION; Start 05/04/17 at 14:00 Heparin Sodium (Porcine) (Heparin (5000 Units/0.5 ml)) 5,000 unit Q12 SC Last administered on 05/05/17 08:53; Admin Dose 5,000 UNIT; Start 05/04/17 at 21: 00 Aspirin (Aspirin) 81 mg DAILY PO ; Start 05/06/17 at 09:00 Carvedilol (Coreg) 6.25 mg BID PO Last administered on 05/05/17 08:51; Admin Dose 6.25 MG; Start 05/04/17 at 21:00 Nitroglycerin (Nitroglycerin (Sl Tab) 0.4 Mg) 1 tab Q5M PRN SL CHEST PAIN; Start 05/04/17 at 14:00 Diagnostic Test (Pha) (Accu-Chek) 1 ea 02 XX ; Start 05/05/17 at 02:00 Miscellaneous Information 1 ea NOTE XX ; Start 05/04/17 at 18:30 Glucose (Glutose) 15 gm Q15M PRN PO DECREASED GLUCOSE; Start 05/04/17 at 18:30 Glucose (Glutose) 22.5 gm Q15M PRN PO DECREASED GLUCOSE; Start 05/04/17 at 18: 30 Dextrose (D50w Syringe) 25 ml Q15M PRN IV DECREASED GLUCOSE; Start 05/04/17 at 18:30 Dextrose (D50w Syringe) 50 ml Q15M PRN IV DECREASED GLUCOSE; Start 05/04/17 at 18:30 Glucagon (Glucagen) 1 mg Q15M PRN IM DECREASED GLUCOSE; Start 05/04/17 at 18: 30 Glucose (Glutose) 15 gm Q15M PRN BUCCAL DECREASED GLUCOSE; Start 05/04/17 at 18:30 Pantoprazole (Protonix Tab) 40 mg DAILY@06 PO ; Start 05/06/17 at 06:00 BRAIN ROTHMAN MD May 05, 2017 14:45
--- NOTE | 2017-05-05 15:58 | RADRPT ---
PROCEDURE: US Carotids. CLINICAL INDICATION: syncope TECHNIQUE: Multiple sonographic of the carotid bifurcation region and vertebral arteries were obta ined utilizing reeder scale, duplex and color-flow imaging. The images were reviewed on a PACS worksta tion. COMPARISON: None FINDINGS: Evaluation of the right carotid bifurcation region reveals mild calcific atherosclerotic disease. Evaluation of the left carotid bifurcation region reveals mild calcific atherosclerotic disease. There is antegrade flow within the vertebral arteries bilaterally. RIGHT CAROTID MEASUREMENTS: Common Carotid [id number] (cm/sec) Internal Carotid Artery - (cm/sec) Internal Carotid Artery - mid68 (cm/sec) Internal Carotid Artery - [id number] (cm/sec) Internal Carotid/Common Carotid0.8 LEFT CAROTID MEASUREMENTS: Common Carotid [id number] (cm/sec) Internal Carotid Artery - [id number] (cm/sec) Internal Carotid Artery - mid66 (cm/sec) Internal Carotid Artery - dista69 (cm/sec) Internal Carotid/Common Carotid1.0 IMPRESSION: 1. No evidence for hemodynamically significant carotid artery stenosis. 2. Normal antegrade flow in the vertebral arteries bilaterally. RPTAT: GG .Jase Warren MD, MD Date Time Electronically viewed and signed by .Jase Warren MD, MD on 05/05/2017 15:58 .G/
[2017-05-06] VITALS: BP 105/60; PULSE 70; RESP 18
[2017-05-06] MEDS: ACCU-CHEK XX SCH (01:56)
[2017-05-06 04:23] VITALS: BP 107/61; RESP 18
[2017-05-06 04:32] VITALS: PULSE 73
[2017-05-06] MEDS ORDERED: PANTOPRAZOLE (EC) 40 MG TAB PO SCH (06:00)
[2017-05-06 08:00] VITALS: BP 135/64; RESP 18
[2017-05-06 08:04] VITALS: PULSE 67
[2017-05-06] MEDS: INSULIN ASPART [NOVOLOG] 3 ML PEN SC SCH (08:48)
[2017-05-06] MEDS: HEPARIN 5,000 UNIT/0.5 ML VIAL SC SCH (08:49)
[2017-05-06] MEDS ORDERED: ASPIRIN 81 MG TAB PO SCH (09:00)
--- NOTE | 2017-05-06 09:28 | PDOCDIS ---
Discharge Instructions DIAGNOSIS Discharge Diagnosis 1. abnormal ekg 2. Suspect syncope. 3. History of schizophrenia. HOME CARE INSTRUCTIONS: Special Diet: low fat, low cholesterol FOLLOW UP/APPOINTMENTS Follow-up Plan 1. Follow up with your primary care provider in one week SUNSHINE BOWLES May 06, 2017 09:28
--- NOTE | 2017-05-06 14:27 | DS ---
Date/Time of Note Date/Time of Note DATE: 05/06/17 TIME: 14:22 Discharge Summary Admission/Discharge Info Admit Date/Time May 04, 2017 at 13:37 Discharge Date/Time May 06, 2017 at 11:10 Discharge Diagnosis 1. abnormal ekg 2. Suspect syncope. 3. History of schizophrenia. Patient Condition: Stable Consults 1. Dr. Maury Mello Hx of Present Illness This is a 61-year-old male with history of schizophrenia and questionable history of cancer (per patient) who came to [facility] after being found at his daycare center with possible syncopal episode. Patient reportedly fell on the ground. He was unable to get himself up. He is a poor historian of his medical history and we did try to get director toxicology however patient was mumbling his words and director toxicology could not understand. History was taken from collaborative medical staff. Patient was brought to [facility] and per report was found to have an EKG showing ST elevation in inferior leads with reciprocal changes. He was seen by cocoa powder mixer operator and brought to record label intern. Patient did undergo left heart catheterization with selective left and right coronary angiography. Per findings there was seen normal LAD/diagonal/circumflex/obtuse marginal/RCA. Patient was noted with normal coronaries. Troponins so far have been negative and chemistry only showing some mild hyponatremia. No fevers reported. Patient remains alert however suspect with some underlying dementia/psychiatric disorder. No reports of chest pain. CT scan of the brain showing no acute intracranial hemorrhage or mass-effect and only seen a chronic right lentiform nucleus lacunar infarct. We will evaluate him for the aformentiond issues. Hospital Course This is a 61-year-old male with history of schizophrenia who was brought to [facility] after being found at his daycare center with possible syncopal episode. Patient reportedly fell on the ground. He is unable to get himself up. He also is a poor historian of his medical history. Patient was brought to [facility] and was found to have abnormal EKG and was seen by cocoa powder mixer operator and did have left heart cath. Coronaries were seen to be clean however. CT scan of the brain was negative for any acute infarction and carotid Doppler was also with no significant stenosis. Patient was ruled out for ACS. He was otherwise optimized medically. After discussion with patient brother, patient did have long- standing history of schizophrenia. On the day of discharge patient was in stable condition and transferred back to his previous housing. Discussed plan of care with Dr. Salazar Liberal Meds No Active Prescriptions or Reported Meds Follow-up Plan 1. Follow up with your primary care provider in one week Primary Care Provider Not On Staff Doctor Time spent on discharge: > 30 minutes Pending Labs Laboratory Tests Test 05/05/17 17:06 05/05/17 21:13 05/06/17 08:40 05/06/17 09:51 Bedside Glucose 141mg/dL (70-220) 146mg/dL (70-220) 145mg/dL (70-220) 202mg/dL (70-220) SUNSHINE BOWLES May 06, 2017 14:27
== END 2017-05-06 11:10 | disposition home or self-care (01) | DRG 282 ==
LOC: E/R 12:14 → REC 13:37 → MS4 15:04
PROVIDERS: ADMIT Internal Medicine Interventional Cardiology; ATTEND Hospitalist
PROC: B211YZZ Fluoroscopy of Multiple Coronary Arteries using Other Contrast (ICD-10-PCS; 2017-05-04)
PROC: B310YZZ Fluoroscopy of Thoracic Aorta using Other Contrast (ICD-10-PCS; 2017-05-04)
PROC: 4A023N7 Measurement of Cardiac Sampling and Pressure, Left Heart, Percutaneous Approach (ICD-10-PCS; principal; 2017-05-04 13:00)
DX: I21.19 ST elevation (STEMI) myocardial infarction involving other coronary artery of inferior wall (principal); F20.9 Schizophrenia, unspecified; R55 Syncope and collapse; W19.XXXA Unspecified fall, initial encounter; Y92.210 Daycare center as the place of occurrence of the external cause; R94.31 Abnormal electrocardiogram [ECG] [EKG]
CPT/HCPCS: 70450; 71010; 80048; 80053; 80061; 82550; 82553; 82962; 83036; 83735; 84100; 84436; 84443; 84479; 84484; 85025; 93005; 93306; 93458; 93880; C1760; C1887; C1894; C9113; J1644; J1815; J2250; J3010; J7030; Q9967